=== PATIENT | female | born 1990 | race Caucasian/White ===

== ENCOUNTER 2017-09-23 23:30 | Emergency (ER) | payer SELFPAY | END 2017-09-24 05:20 | disposition home or self-care (01) | LOC: FTE 23:30 | DX: K59.00 Constipation, unspecified (principal) | CPT/HCPCS: 99284 ==

== ENCOUNTER 2018-08-28 13:32 | Outpatient (CLI) | payer MEDICAID | END 2018-08-28 16:00 | disposition home or self-care (01) | LOC: OBT 13:32 → L-D 13:33 → OBT 16:00 | DX: O24.419 Gestational diabetes mellitus in pregnancy, unspecified control (principal); Z3A.38 38 weeks gestation of pregnancy | CPT/HCPCS: 76815; 76818 ==

== ENCOUNTER 2018-08-29 20:07 | Inpatient (IN) | payer MEDICAID ==
[2018-08-29] MEDS ORDERED: MISOPROSTOL 200 MCG TAB PR (21:30)
[2018-08-29] MEDS ORDERED: BUTORPHANOL 2 MG INJ IV (21:30)
[2018-08-29] MEDS ORDERED: OXYTOCIN 30 UNITS/LR 500 ML IV (21:30)
[2018-08-29] MEDS ORDERED: CARBOPROST 250 MCG INJ IM (21:30)
[2018-08-29] MEDS ORDERED: DEXTROSE 5%-LR 1,000 ML IV (21:44)
[2018-08-29] MEDS: LACTATED RINGER'S 1,000 ML IV (22:03)
[2018-08-29] MEDS: MISOPROSTOL 50 MCG CAPSULE PO (22:07)
[2018-08-29 22:42] LABS: ADD MAN DIFF? NO
[2018-08-29 22:43] LABS: BASOPHILS % 0.3 % (0.0-2.0); EOSINOPHILS # 0.1 10^3/ul (0.0-0.5); EOSINOPHILS % 0.7 % (0.0-7.0); HEMATOCRIT 32.3 % (37.0-47.0); HEMOGLOBIN 10.8 g/dl (12.0-16.0); LYMPHOCYTES # 2.2 10^3/ul (0.8-2.9); LYMPHOCYTES % 28.8 % (15.0-51.0); MEAN CORPUSCULAR HEMOGLOBIN 31.5 pg (29.0-33.0); MEAN CORPUSCULAR HGB CONC 33.4 g/dl (32.0-37.0); MEAN CORPUSCULAR VOLUME 94.2 fl (82.0-101.0); MEAN PLATELET VOLUME 12.2 fl (7.4-10.4); MONOCYTE # 0.4 10^3/ul (0.3-0.9); MONOCYTES % 5.1 % (0.0-11.0); NEUTROPHILS % 64.7 % (39.0-77.0); PLATELET COUNT 160 10^3/UL (140-415); RED BLOOD COUNT 3.43 10^6/ul (4.20-5.40); RED CELL DISTRIBUTION WIDTH 13.8 % (11.5-14.5)
[2018-08-29 22:43] LABS: WHITE BLOOD COUNT 7.7 10^3/ul (4.8-10.8)
[2018-08-29 23:07] LABS: INR 0.83; PROTIME 11.5 Sec (11.9-14.9); PT RATIO 0.9
[2018-08-29 23:08] LABS: PARTIAL THROMBOPLASTIN TIME 26.6 Sec (23.0-35.0)
[2018-08-30] MEDS: MISOPROSTOL 50 MCG CAPSULE PO (02:25)
[2018-08-30] MEDS: LACTATED RINGER'S 1,000 ML IV ×2 (03:58→08:54)
[2018-08-30] MEDS ORDERED: FENTAnyl 2MCG/ML-ROPIV 0.2% 0 ML (08:57)
[2018-08-30] MEDS ORDERED: MISOPROSTOL 200 MCG TAB (09:14)
[2018-08-30] MEDS: METHYLERGONOVINE 0.2 MG INJ IM (09:14)
[2018-08-30] MEDS: OXYTOCIN 30 UNITS/LR 500 ML IV ×2 (09:16→09:17)
[2018-08-30] MEDS: LIDOCAINE 1% (MPF) 30 ML INJ INJ (09:17)
[2018-08-30] MEDS: IBUPROFEN 600 MG TAB PO ×3 (10:03→23:35)
[2018-08-30] MEDS: LACTATED RINGER'S 1,000 ML IV* (12:44)
[2018-08-30] MEDS: DEXTROSE 5%-LR 1,000 ML IV (12:44)
[2018-08-30] MEDS ORDERED: ONDANSETRON 4 MG INJ IV (13:00)
[2018-08-30] MEDS ORDERED: MISOPROSTOL 200 MCG TAB PR (13:00)
[2018-08-30] MEDS ORDERED: ZOLPIDEM 5 MG TAB PO (13:00)
[2018-08-30] MEDS ORDERED: DIPHENHYDRAMINE 50 MG INJ IV (13:00)
[2018-08-30] MEDS ORDERED: ACETAMINOPHEN 325 MG TAB PO ×2 (13:00→13:30)
[2018-08-30] MEDS ORDERED: CARBOPROST 250 MCG INJ IM (13:00)
[2018-08-30] MEDS ORDERED: OXYTOCIN 30 UNITS/LR 500 ML IV (13:00)
[2018-08-30] MEDS ORDERED: MAGNESIUM HYDROXIDE 30ML CUP PO (13:00)
[2018-08-30] MEDS ORDERED: METHYLERGONOVINE 0.2 MG INJ IM (13:00)
[2018-08-30] MEDS: DIBUCAINE 1% 30 GM OINT TOP (14:39)
[2018-08-30] MEDS: WITCH HAZEL/GLYCERIN PAD PR (14:39)
[2018-08-30] MEDS: LANOLIN HPA 1 PKT TOP (14:39)
[2018-08-30] MEDS: BENZOCAINE 20% 56 ML SPRAY TOP (14:39)
[2018-08-30 15:05] LABS: RAPID PLASMA REAGIN NONREACTIVE (NR)
[2018-08-31] MEDS: IBUPROFEN 600 MG TAB PO ×4 (05:34→23:58)
[2018-08-31 08:25] LABS: ADD MAN DIFF? NO
[2018-08-31 08:36] LABS: WHITE BLOOD COUNT 10.6 10^3/ul (4.8-10.8)
[2018-08-31 08:36] LABS: BASOPHILS % 0.2 % (0.0-2.0); EOSINOPHILS # 0.1 10^3/ul (0.0-0.5); EOSINOPHILS % 0.6 % (0.0-7.0); HEMATOCRIT 28.3 % (37.0-47.0); HEMOGLOBIN 9.5 g/dl (12.0-16.0); LYMPHOCYTES # 2.3 10^3/ul (0.8-2.9); LYMPHOCYTES % 21.9 % (15.0-51.0); MEAN CORPUSCULAR HGB CONC 33.6 g/dl (32.0-37.0); MEAN CORPUSCULAR VOLUME 95.3 fl (82.0-101.0); MEAN PLATELET VOLUME 12.1 fl (7.4-10.4); MONOCYTE # 0.4 10^3/ul (0.3-0.9); NEUTROPHIL # 7.7 10^3/ul (1.6-7.5); NEUTROPHILS % 72.7 % (39.0-77.0); PLATELET COUNT 138 10^3/UL (140-415); RED BLOOD COUNT 2.97 10^6/ul (4.20-5.40); RED CELL DISTRIBUTION WIDTH 14.1 % (11.5-14.5)
[2018-08-31] MEDS: OXYCODONE/ASPIRIN (4.88/325) TAB PO (21:10)
[2018-09-01] MEDS: IBUPROFEN 600 MG TAB PO ×3 (05:32→17:08)
[2018-09-01] MEDS: DIPHTH/TET/ACEL PERTUSS (ADULT) 0.5 ML VIAL IM* (07:18)
[2018-09-01] MEDS: MEASLES,MUMPS,RUBELLA VACCINE INJ SC* (07:18)
[2018-09-01] MEDS: SENNA/DOCUSATE NA (8.6MG/50MG) TAB PO (09:10)
[2018-09-01] MEDS: WITCH HAZEL/GLYCERIN PAD PR (17:37)
[2018-09-01] MEDS: BENZOCAINE 20% 56 ML SPRAY TOP (17:37)
== END 2018-09-01 18:10 | disposition home or self-care (01) | DRG 807 ==
LOC: PP1 08-30 11:31 → L-D 20:07
PROVIDERS: Obstetrics & Gynecology
PROC: 10E0XZZ Delivery of Products of Conception, External Approach (ICD-10-PCS; principal; 2018-08-30)
DX: O24.420 Gestational diabetes mellitus in childbirth, diet controlled (principal); Z37.0 Single live birth; Z3A.39 39 weeks gestation of pregnancy; O90.81 Anemia of the puerperium
CPT/HCPCS: 82962; 85025; 85610; 85730; 86592; 86850; 86900; 86901